=== PATIENT | male | born 1980 | race Caucasian/White ===

== ENCOUNTER 2019-05-29 17:45 | Emergency (ER) | payer BC, OTHER ==
[2019-05-29] MEDS ORDERED: Lidocaine 1% 10 ML MDV INJECT ONE (17:54)
[2019-05-29] MEDS ORDERED: Cephalexin 500 MG Cap PO ONE (18:07)
[2019-05-29] MEDS ORDERED: Lidocaine 1% with EPINEPHrine 1:100,000 20 ML MDV INJECT ONE (18:07)
[2019-05-29] MEDS ORDERED: Diphtheria,Pertussis(Acell),Tetanus Vaccine 0.5 ML Syringe IM ONE (18:07)
[2019-05-29] MEDS ORDERED: Bacitracin Oint 1 GM U/D Packet TOP ONE (18:09)
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
--- NOTE | 2019-05-29 18:50 | CR ---
Indication: Trauma Technique: Three views right hand Comparison: None Findings: Bones: Alignment is normal. No fractures or bone lesions. Joint spaces: Unremarkable. Soft tissues: Soft tissue disruption along the medial aspect of the carpal and metacarpal bones. No radiopaque foreign body. Impression: Soft tissue disruption along the medial aspect of the carpal and metacarpal bones. No radiopaque foreign body or fracture. Dictated by Isabell Keyes MD @ May 29 2019 6:46PM Signed by Dr. Isabell Keyes @ May 29 2019 6:48PM
[2019-05-29 19:07] VITALS: BP 121/64; PULSE 89
== END 2019-05-29 19:12 | disposition home or self-care (01) ==
LOC: MW.ED 17:45
DX: S61.411A Laceration without foreign body of right hand, initial encounter (principal); F17.210 Nicotine dependence, cigarettes, uncomplicated; Z88.0 Allergy status to penicillin; Z23 Encounter for immunization; Z90.81 Acquired absence of spleen; Z98.1 Arthrodesis status; Z90.49 Acquired absence of other specified parts of digestive tract; W25.XXXA Contact with sharp glass, initial encounter
CPT/HCPCS: 12002; 73130; 90471; 90715; 99283; A9270

== ENCOUNTER 2019-05-31 17:01 | Emergency (ER) | payer SELFPAY ==
--- NOTE | 2019-05-31 17:23 | EDM.PDOC ---
ED HPI GENERAL MEDICAL PROBLEM - General Stated Complaint: PSYCH Time Seen by Provider: 05/31/19 17:16 Source of Information: Reports: Patient History Limitations: Reports: No Limitations - History of Present Illness INITIAL COMMENTS - FREE TEXT/NARRATIVE: HISTORY AND PHYSICAL: History of present illness: Patient is a 39-year-old male who presents to the emergency room for medical screening examination. Prior to arrival the patient had spoke with his on the phone and apparently she was concerned that he was suicidal. Patient reports he has been seeing a counselor as he and his are having marital problems. Currently he is staying at a hotel and phoned his stating "goodbye and take care of my children". Patient states that she called an text multiple times and he felt it was best not to answer. He proceeded to take a nap. He is woken up by knocking at a store and it was police doing a welfare check on him. Encourage that he come in for evaluation as the was concerned. Patient states he has not made any comments about wanting to harm himself or harm others. EMS and law enforcement confirmed that the patient has made no suicidal comments or comments about wanting to harm himself. He states he has been drinking today but denies any drug abuse. Review of systems: As per history of present illness and below otherwise all systems reviewed and negative. Past medical history: As per history of present illness and as reviewed below otherwise noncontributory. Surgical history: As per history of present illness and as reviewed below otherwise noncontributory. Social history: See social history for further information Family history: As per history of present illness and as reviewed below otherwise noncontributory. Physical exam: General: Well-developed and well-nourished 39-year-old male. Alert and oriented. Nontoxic appearing and in no acute distress. HEENT: Atraumatic, normocephalic, pupils equal and reactive bilaterally, negative for conjunctival pallor or scleral icterus, mucous membranes moist, TMs normal bilaterally, throat clear, neck supple, nontender, trachea midline. No drooling or trismus noted. No meningeal signs. No hot potato voice noted. Lungs: Clear to auscultation, breath sounds equal bilaterally, chest nontender. Heart: S1S2, regular rate and rhythm without overt murmur Abdomen: Soft, nondistended, nontender. Skin: Healing laceration/suture site to the right hand with soft tissue swelling (see visit from 05/29/19). Otherwise intact, warm, dry. No lesions or rashes noted. Extremities: Moves all extremities per self without difficulty or deficits, negative for cords or calf pain. Neurovascular unremarkable. Neuro: Awake, alert, oriented. Cranial nerves II through XII unremarkable. Cerebellum unremarkable. Motor and sensory unremarkable throughout. Exam nonfocal. Notes: Patient was asked multiple times by myself and nursing staff if he had thoughts of harming himself and he declines. Law enforcement and EMS confirmed that he has not made any comments to them about self-harm or suicide. There is no family here to give information of proof that the patient had made such comments. Dr. Palafox who saw the patient on 05/29/2019, spoke with the patient and she did care for him for a right hand injury. The right hand does appear to have soft tissue swelling although the laceration does not appear infected. At that time she did give him a prescription for Keflex but the patient states he did not receive this. She did renew his prescription to have. Keflex 500 mg every 6 hours 5 days. Patient declines the need for any diagnostics at this time. Vital signs are stable. We'll discharge to home. Supportive care measures were reviewed and discussed. Voices understanding and is agreeable to plan of care. Denies any further questions or concerns at this time. Diagnostics: None Therapeutics: None Prescription: Keflex (per Hitesh) Impression: Encounter for medical screening Plan: 1. Continue to see your counselor as needed 2. Take the antibiotic for the hand injury. Keep laceration clean and dry 3. Follow up as we discussed. Return to the ED as needed as discussed. Definitive disposition and diagnosis as appropriate pending reevaluation and review of above. - Related Data Allergies Allergy/AdvReac Type Severity Reaction Status Date / Time Penicillins Allergy Hives Verified 05/29/19 17:57 Home Meds: Home Meds . [No Known Home Meds] 05/29/19 [History] Past Medical History HEENT History: Reports: None Cardiovascular History: Reports: None Respiratory History: Reports: None Genitourinary History: Reports: None Musculoskeletal History: Reports: None Neurological History: Reports: None Psychiatric History: Reports: None Endocrine/Metabolic History: Reports: None Hematologic History: Reports: Other (See Below) Other Hematologic History: spherocytosis, spleen surgically removed Immunologic History: Reports: Other (See Below) Other Immunologic History: spleen surgically removed Oncologic (Cancer) History: Reports: None Dermatologic History: Reports: None - Infectious Disease History Infectious Disease History: Reports: Chicken Pox - Past Surgical History Head Surgeries/Procedures: Reports: None GI Surgical History: Reports: Cholecystectomy, Other (See Below) Other GI Surgeries/Procedures: spleen removal Neurological Surgical History: Reports: Lumbar Spine, Spinal Fusion Social & Family History - Family History Family Medical History: Noncontributory Cardiac: Reports: Bypass, [place], Stent - Caffeine Use Caffeine Use: Reports: Coffee ED ROS GENERAL - Review of Systems Review Of Systems: ROS reveals no pertinent complaints other than HPI. ED EXAM, GENERAL - Physical Exam Exam: See Below (See dictation) Departure - Departure Time of Disposition: 17:23 Disposition: Home, Self-Care 01 Clinical Impression: Encounter for medical screening examination - Discharge Information Additional Instructions: The following information is given to patients seen in the emergency department who are being discharged to home. This information is to outline your options for follow-up care. We provide all patients seen in our emergency department with a follow-up referral. The need for follow-up, as well as the timing and circumstances, are variable depending upon the specifics of your emergency department visit. If you don't have a primary care physician on staff, we will provide you with a referral. We always advise you to contact your personal physician following an emergency department visit to inform them of the circumstance of the visit and for follow-up with them and/or the need for any referrals to a consulting specialist. The emergency department will also refer you to a specialist when appropriate. This referral assures that you have the opportunity for follow-up care with a specialist. All of these measure are taken in an effort to provide you with optimal care, which includes your follow-up. Under all circumstances we always encourage you to contact your private physician who remains a resource for coordinating your care. When calling for follow-up care, please make the office aware that this follow-up is from your recent emergency room visit. If for any reason you are refused follow-up, please contact the [facility] Emergency Department at and asked to speak to the emergency department charge nurse. [facility] [address] [place] [address] [facility] [address] [place] [id number] 1. Continue to see your counselor as needed 2. Take the antibiotic for the hand injury. Keep laceration clean and dry 3. Follow up as we discussed. Return to the ED as needed as discussed.
[2019-05-31 17:58] VITALS: BP 140/86; PULSE 91
== END 2019-05-31 17:59 | disposition home or self-care (01) ==
LOC: MW.ED 17:01
DX: Z13.9 Encounter for screening, unspecified (principal); Z88.0 Allergy status to penicillin
CPT/HCPCS: 99282; 99283

== ENCOUNTER 2019-07-17 13:51 | Emergency (ER) | payer SELFPAY ==
[2019-07-17 14:01] VITALS: BP 134/79; PULSE 98
[2019-07-17] MEDS ORDERED: Sodium Chloride 0.9% 1,000 ML IV ONE (14:02)
== END 2019-07-17 14:06 | disposition left against medical advice (07) ==
LOC: MW.ED 13:51
DX: Z53.21 Procedure and treatment not carried out due to patient leaving prior to being seen by health care provider (principal)

== ENCOUNTER 2024-08-04 20:29 | Emergency (ER) | payer SELFPAY ==
[2024-08-04 20:45] VITALS: BP 155/96; PULSE 111
== END 2024-08-04 20:54 ==
LOC: MW.ED 20:29
DX: Z02.9 Encounter for administrative examinations, unspecified (principal); Z88.0 Allergy status to penicillin; Z75.8 Other problems related to medical facilities and other health care
CPT/HCPCS: 82947; 99282; 99283

== ENCOUNTER 2024-08-19 12:02 | Inpatient (IN) | payer OTHER ==
[2024-08-19] MEDS: Ondansetron 4 MG/2 ML SDV IVPUSH STA (12:38)
[2024-08-19 12:44] LABS: BASOPHILS ABSOLUTE AUTO 0.07 K/uL (0.00-0.20); BASOPHILS PERCENT AUTO 0.7 % (0.0-1.0); EOSINOPHILS PERCENT AUTO 3.2 % (0.0-6.0); HEMATOCRIT 30.7 % (42.0-52.0); HEMOGLOBIN 11.4 g/dL (14.0-18.0); IMMATURE GRAN ABSOLUTE AUTO 0.03 K/uL (0.00-0.05); IMMATURE GRAN PERCENT AUTO 0.3 % (0.0-0.4); LYMPHOCYTES ABSOLUTE AUTO 2.62 K/uL (1.00-4.80); MEAN CORPUSCULAR HEMOGLOBIN 33.8 pg (28.0-32.0); MEAN CORPUSCULAR HGB CONC 37.1 g/dL (32.0-36.0); MEAN CORPUSCULAR VOLUME 91.1 fL (83.0-99.0); MEAN PLATELET VOLUME 11.5 fL (9.4-12.4); MONOCYTES PERCENT AUTO 11.8 % (0.0-8.0); NEUTROPHILS ABSOLUTE AUTO 5.23 K/uL (1.80-7.70); NRBC ABSOLUTE 0.04 K/uL (0.00-0.02); NRBC PERCENT 0.4 /100WBC (0.0-0.2); PLATELET COUNT,PLT 208 K/uL (150-400); RED BLOOD CELL COUNT 3.37 M/uL (4.52-5.90); WHITE BLOOD CELL COUNT,WBC 9.35 K/uL (3.9-11.3)
[2024-08-19 13:13] LABS: A/G RATIO 1.6 (0.9-1.6); ALBUMIN 4.7 g/dL (3.4-5.0); CALCIUM 10.5 mg/dL (8.5-10.1); CARBON DIOXIDE,CO2 18.4 mmol/L (21.0-32.0); CREATININE 1.1 mg/dL (0.8-1.3); EST CRCL DRUG DOSING (CG) 87.97 mL/min; POTASSIUM,K 3.9 mmol/L (3.5-5.1); PROTEIN TOTAL,TP 7.6 g/dL (6.4-8.2)
[2024-08-19 13:45] LABS: INR 1.1 (0.86-1.11)
[2024-08-19] MEDS: PHENobarbitaL sodium 260 MG in Sodium Chloride 0.9% 100 ML IV ONE (13:55)
[2024-08-19] MEDS: Sodium Chloride 0.9% 1,000 ML IV ONE ×2 (13:55→16:41)
[2024-08-19 15:16] LABS: HEPATITIS C AB# 0.09 INDEX (<0.8)
[2024-08-19 15:26] LABS: AMPHETAMINES SCREEN, URINE NEGATIVE (CUTOFF=500); BARBITURATE SCREEN,URINE PRESUMPTIVE POSITIVE (CUTOFF=200); BENZODIAZEPINES SCREEN,URINE NEGATIVE (CUTOFF=150); BUPRENORPHINE SCREEN,URINE NEGATIVE (CUTOFF=10); METHADONE SCREEN, URINE NEGATIVE (CUTOFF=200); METHAMPHETAMINES SCREEN, URINE NEGATIVE (CUTOFF=500); OXYCODONE SCREEN,URINE NEGATIVE (CUT0FF=100); PCP SCREEN,URINE NEGATIVE (CUTOFF=25); THC SCREEN,URINE 20 NG/ML NEGATIVE (CUTOFF=50)
[2024-08-19] MEDS: Folic Acid 1 MG/0.2 ML UD Syringe IV SCH (16:41)
[2024-08-19] MEDS: Thiamine 200 MG/2 ML MDV IVPUSH ONE (16:41)
[2024-08-19] MEDS ORDERED: Ondansetron 4 MG Tab.DIS PO PRN (17:01)
[2024-08-19] MEDS ORDERED: Acetaminophen 325 MG Tab PO PRN (17:01)
[2024-08-19] MEDS ORDERED: Bisacodyl 5 MG Tab PO PRN (17:01)
[2024-08-19] MEDS ORDERED: Ibuprofen 600 MG Tab PO PRN (17:01)
[2024-08-19] MEDS ORDERED: Promethazine 25 MG/ML SDV IM PRN (17:01)
[2024-08-19] MEDS ORDERED: Polyethylene Glycol 3350 Powder 17 GM Packet PO PRN (17:01)
[2024-08-19] MEDS ORDERED: Metoclopramide 5 MG Tab PO PRN (17:01)
[2024-08-19] MEDS ORDERED: PHENobarbital 32.4 MG Tab PO PRN (17:09)
[2024-08-19] MEDS: Pantoprazole 40 MG in Sodium Chloride 0.9% 10 ML IVPUSH SCH (17:28)
[2024-08-19] MEDS: Enoxaparin 40 MG/0.4 ML Syringe SUBCUT SCH (17:28)
[2024-08-19] MEDS: PHENobarbital 32.4 MG Tab PO PRN ×2 (17:29→19:48)
[2024-08-19] MEDS: Sodium Chloride 0.9% 1,000 ML IV SCH (17:37)
[2024-08-20 05:36] LABS: BASOPHILS ABSOLUTE AUTO 0.06 K/uL (0.00-0.20); BASOPHILS PERCENT AUTO 0.7 % (0.0-1.0); EOSINOPHILS ABSOLUTE AUTO 0.07 K/uL (0.00-0.45); EOSINOPHILS PERCENT AUTO 0.8 % (0.0-6.0); HEMATOCRIT 26.2 % (42.0-52.0); HEMOGLOBIN 9.7 g/dL (14.0-18.0); IMMATURE GRAN ABSOLUTE AUTO 0.04 K/uL (0.00-0.05); IMMATURE GRAN PERCENT AUTO 0.5 % (0.0-0.4); LYMPHOCYTES ABSOLUTE AUTO 1.68 K/uL (1.00-4.80); LYMPHOCYTES PERCENT AUTO 20.2 % (24.0-44.0); MEAN CORPUSCULAR HEMOGLOBIN 33.9 pg (28.0-32.0); MEAN CORPUSCULAR VOLUME 91.6 fL (83.0-99.0); MEAN PLATELET VOLUME 11.6 fL (9.4-12.4); MONOCYTES ABSOLUTE AUTO 0.68 K/uL (0.00-0.80); MONOCYTES PERCENT AUTO 8.2 % (0.0-8.0); NEUTROPHILS PERCENT AUTO 69.6 % (41.0-71.0); NRBC ABSOLUTE 0.16 K/uL (0.00-0.02); NRBC PERCENT 1.9 /100WBC (0.0-0.2); PLATELET COUNT,PLT 185 K/uL (150-400); RED BLOOD CELL COUNT 2.86 M/uL (4.52-5.90); WHITE BLOOD CELL COUNT,WBC 8.33 K/uL (3.9-11.3)
[2024-08-20 06:00] LABS: A/G RATIO 1.5 (0.9-1.6); ALBUMIN 3.5 g/dL (3.4-5.0); BILIRUBIN TOTAL 6.8 mg/dL (0.2-1.0); CALCIUM 8.7 mg/dL (8.5-10.1); CARBON DIOXIDE,CO2 25.7 mmol/L (21.0-32.0); CREATININE 0.8 mg/dL (0.8-1.3); EST CRCL DRUG DOSING (CG) 125.5 mL/min; MAGNESIUM 0.9 mg/dL (1.8-2.4); PHOSPHORUS 3.6 mg/dL (2.6-4.7); POTASSIUM,K 3.7 mmol/L (3.5-5.1); PROTEIN TOTAL,TP 5.8 g/dL (6.4-8.2)
[2024-08-20] MEDS ORDERED: PHENobarbital Sodium 130 MG/ML SDV IVPUSH PRN (06:31)
[2024-08-20] MEDS ORDERED: WATER IV SCH (09:00)
[2024-08-20] MEDS ORDERED: Thiamine 100 MG in Sodium Chloride 0.9% 100 ML IV SCH (09:00)
[2024-08-20] MEDS ORDERED: MAGNESIUM SULFATE IV SCH (09:00)
[2024-08-20] MEDS: Thiamine 200 MG/2 ML MDV IV SCH (09:19)
[2024-08-20] MEDS: Potassium Chloride 20 MEQ Tab.ER PO ONE (09:19)
[2024-08-20] MEDS: Magnesium Sulfate/Water Premix 2 GM in Premix Bag 1 BAG IV ONE (09:27)
[2024-08-20] MEDS: Magnesium Sulfate/Water Premix 4 GM in Premix Bag 1 BAG IV ONE (10:30)
[2024-08-20 17:29] LABS: CALCIUM 8.4 mg/dL (8.5-10.1); CARBON DIOXIDE,CO2 25.6 mmol/L (21.0-32.0); CREATININE 0.8 mg/dL (0.8-1.3); EST CRCL DRUG DOSING (CG) 125.5 mL/min; MAGNESIUM 1.8 mg/dL (1.8-2.4); POTASSIUM,K 3.5 mmol/L (3.5-5.1)
[2024-08-21 06:00] LABS: BASOPHILS ABSOLUTE AUTO 0.04 K/uL (0.00-0.20); BASOPHILS PERCENT AUTO 0.6 % (0.0-1.0); EOSINOPHILS ABSOLUTE AUTO 0.11 K/uL (0.00-0.45); EOSINOPHILS PERCENT AUTO 1.7 % (0.0-6.0); HEMOGLOBIN 9.6 g/dL (14.0-18.0); IMMATURE GRAN ABSOLUTE AUTO 0.04 K/uL (0.00-0.05); IMMATURE GRAN PERCENT AUTO 0.6 % (0.0-0.4); LYMPHOCYTES ABSOLUTE AUTO 1.56 K/uL (1.00-4.80); LYMPHOCYTES PERCENT AUTO 23.6 % (24.0-44.0); MEAN CORPUSCULAR HGB CONC 35.6 g/dL (32.0-36.0); MEAN CORPUSCULAR VOLUME 92.8 fL (83.0-99.0); MEAN PLATELET VOLUME 12.4 fL (9.4-12.4); MONOCYTES ABSOLUTE AUTO 0.61 K/uL (0.00-0.80); MONOCYTES PERCENT AUTO 9.2 % (0.0-8.0); NEUTROPHILS ABSOLUTE AUTO 4.24 K/uL (1.80-7.70); NEUTROPHILS PERCENT AUTO 64.3 % (41.0-71.0); NRBC ABSOLUTE 0.25 K/uL (0.00-0.02); NRBC PERCENT 3.8 /100WBC (0.0-0.2); PLATELET COUNT,PLT 198 K/uL (150-400); RED BLOOD CELL COUNT 2.91 M/uL (4.52-5.90)
[2024-08-21 06:25] LABS: A/G RATIO 1.4 (0.9-1.6); ALBUMIN 3.6 g/dL (3.4-5.0); BILIRUBIN TOTAL 3.4 mg/dL (0.2-1.0); CALCIUM 8.9 mg/dL (8.5-10.1); CARBON DIOXIDE,CO2 27.2 mmol/L (21.0-32.0); CREATININE 0.7 mg/dL (0.8-1.3); EST CRCL DRUG DOSING (CG) 143.43 mL/min; MAGNESIUM 1.7 mg/dL (1.8-2.4); PHOSPHORUS 3.8 mg/dL (2.6-4.7); POTASSIUM,K 3.5 mmol/L (3.5-5.1); PROTEIN TOTAL,TP 6.2 g/dL (6.4-8.2)
[2024-08-21] MEDS ORDERED: Magnesium Sulfate/Water 2 GM/50 ML Premix Bag IV ONE (06:31)
[2024-08-21 07:52] VITALS: BP 132/76; PULSE 88
[2024-08-21] MEDS: Magnesium Sulfate/Water Premix 2 GM in Premix Bag 1 BAG IV ONE (09:11)
== END 2024-08-21 09:03 | disposition home or self-care (01) | DRG 897 ==
LOC: MW.ED 12:02 → MW.ICU 16:33 → MW.MS 08-20 14:31
PROVIDERS: ADMIT Internal Medicine; ATTEND Internal Medicine
DX: F10.131 Alcohol abuse with withdrawal delirium (principal); F10.121 Alcohol abuse with intoxication delirium; Z88.0 Allergy status to penicillin; Z90.49 Acquired absence of other specified parts of digestive tract
CPT/HCPCS: 36415; 76705; 76705-26; 80048; 80053; 80305-QW; 80307; 82140; 83690; 83735; 84100; 85025; 85610; 86803; 87340; 93005; 93010; 99285; A9270-GY; J1650; J2405; J2470; J2560; J3411; J3475; J3490; J7030

== ENCOUNTER 2024-09-04 12:13 | Emergency (ER) | payer SELFPAY ==
[2024-09-04 12:43] VITALS: BP 166/91; PULSE 115
== END 2024-09-04 13:04 | disposition home or self-care (01) ==
LOC: MW.ED 12:13
DX: Z02.89 Encounter for other administrative examinations (principal); Z90.49 Acquired absence of other specified parts of digestive tract; F17.210 Nicotine dependence, cigarettes, uncomplicated; Z75.8 Other problems related to medical facilities and other health care; Z88.0 Allergy status to penicillin
CPT/HCPCS: 99283

== ENCOUNTER 2024-10-13 16:25 | Emergency (ER) | payer MEDICAID, OTHER | END 2024-10-13 17:04 | disposition left against medical advice (07) | LOC: MW.ED 16:25 | DX: Z53.21 Procedure and treatment not carried out due to patient leaving prior to being seen by health care provider (principal) ==